=== PATIENT | female | born 2000 | race Caucasian/White ===

== ENCOUNTER 2019-02-12 13:49 | Outpatient (CLI) | payer BC ==
[2019-02-12 14:47] LABS: BHCG - Serum Negative (NEGATIVE); Pregs Control Background? CLEAR/WHITE (CLR/WHITE); Pregs Control Bar Appear? YES (CONTROL BAR)
== END 2019-02-12 13:50 | disposition home or self-care (01) ==
LOC: LABBT 13:49
PROVIDERS: ATTEND Surgery
DX: Z01.812 Encounter for preprocedural laboratory examination (principal); L05.91 Pilonidal cyst without abscess
CPT/HCPCS: 84703

== ENCOUNTER 2019-02-15 10:10 | Day surgery (SDC) | payer BC ==
[2019-02-12 13:59] VITALS: BMI 25.7
[2019-02-15] MEDS ORDERED: Midazolam HCl 2 mg/2 ml Vial ONE (12:40)
[2019-02-15] MEDS ORDERED: Bupivacaine HCl 0.5%/Epinephrine 1:200,000/PF 30 ml Vial ONE (12:40)
[2019-02-15] MEDS ORDERED: Lidocaine 2% PF 5 ML VIAL ONE (12:40)
[2019-02-15] MEDS ORDERED: Fentanyl 100 MCG/2 ML VIAL ONE (12:42)
[2019-02-15] MEDS ORDERED: Ondansetron PF 4 MG/2 ML Vial ONE (13:33)
[2019-02-15] MEDS ORDERED: Rocuronium Bromide 10 MG/ML (10ML VIAL) ONE (13:33)
[2019-02-15] MEDS ORDERED: Glycopyrrolate 0.2 MG/ML 5 ML SYRINGE ONE (13:33)
[2019-02-15] MEDS ORDERED: Lidocaine 1% PF 5 ML VIAL ONE (13:33)
[2019-02-15] MEDS ORDERED: Ketorolac Tromethamine 30 MG/ML VIAL ONE (13:33)
[2019-02-15] MEDS ORDERED: Dexamethasone 20 MG/5 ML VIAL ONE (13:33)
[2019-02-15] MEDS ORDERED: PROPOFOL 200 MG/20 ML VIAL ONE (13:33)
--- NOTE | 2019-02-16 12:44 | OP ---
DATE OF PROCEDURE: 02/15/2019 PREOPERATIVE DIAGNOSES: Pilonidal cyst and pilonidal disease. POSTOPERATIVE DIAGNOSES: Pilonidal cyst and pilonidal disease. PROCEDURE PERFORMED: Excision complex of pilonidal disease/cyst. ANESTHESIA: General. ESTIMATED BLOOD LOSS: Minimal. COMPLICATIONS: None. SPECIMEN: Pilonidal cyst DESCRIPTION OF PROCEDURE: The patient was taken to the operating room and laid supine on the operating room table. After general anesthetic was obtained, the patient was placed in the prone position. Her gluteal cleft, buttock, and perianal areas were all prepped and draped in a sterile fashion. Elliptical incision was used ellipse out the area of involved pilonidal disease. Dissection was taken down through the tissues into the subcutaneous tissues in almost all the way to the sacrum. Meticulous hemostasis was obtained in the tissues. Local anesthetic was applied. The wound was closed using 2-0 Vicryl in the deep tissues, 3-0 Vicryl in the subcutaneous tissues, and a running 4-0 Monocryl and Dermabond on the skin. The patient was sent to Recovery in stable condition. All instrument counts, needle counts, and lap counts were correct. Job ID: [id number]
== END 2019-02-15 15:15 | disposition home or self-care (01) ==
LOC: SDC 10:10
PROVIDERS: ATTEND Surgery
PROC: 0JB90ZZ Excision of Buttock Subcutaneous Tissue and Fascia, Open Approach (ICD-10-PCS; principal; 2019-02-15)
DX: L05.91 Pilonidal cyst without abscess (principal); F41.9 Anxiety disorder, unspecified; Z79.899 Other long term (current) drug therapy; Z88.0 Allergy status to penicillin
CPT/HCPCS: 88304; J0670; J0690; J1100; J1885; J2001; J2250; J2405; J2704; J3010